=== PATIENT | male | born 1985 | race Caucasian/White ===

== ENCOUNTER 2021-10-31 21:16 | Inpatient (IN) | payer OTHER ==
[2021-10-31] MEDS ORDERED: ONDANSETRON *ODT* 4 MG TABLET SL PRN (21:49)
[2021-10-31] MEDS ORDERED: BENZOCAINE/MENTHOL (CHLORASEPTIC ) LOZENGE MM PRN (21:49)
[2021-10-31] MEDS ORDERED: ACETAMINOPHEN 325 MG TABLET (FP) PO PRN (21:49)
[2021-10-31] MEDS ORDERED: MAGNESIUM CITRATE 300 ML BOTTLE PO PRN (21:49)
[2021-10-31] MEDS ORDERED: NALOXONE HCL (KLOXXADO) 8 MG SPRAY NS PRN (21:49)
[2021-10-31] MEDS ORDERED: LOPERAMIDE HCL 2 MG CAPSULE PO PRN (21:49)
[2021-10-31] MEDS ORDERED: DICYCLOMINE HCL 10 MG CAPSULE PO PRN (21:49)
[2021-10-31] MEDS ORDERED: MAG HYDROX/AL HYDROX/SIMETH 30 ML UNIT-DOSE CUP PO PRN (21:49)
[2021-10-31] MEDS ORDERED: MAGNESIUM HYDROX 2400MG/30ML ORAL SUSPENSION 30 ML CUP PO PRN (21:49)
[2021-10-31] MEDS ORDERED: BISMUTH SUBSALICYLATE 524 MG/30 ML PO PRN (21:49)
[2021-10-31 22:52] VITALS: BMI 24.8
[2021-11-01] MEDS: MELATONIN 5 MG TABLETS PO SCH ×2 (01:08→22:31)
[2021-11-01] MEDS: THIAMINE HCL 100 MG TABLET (FP) PO SCH ×2 (01:08→22:29)
[2021-11-01] MEDS: clonazePAM 0.5 MG ODT TABLETS SL SCH ×2 (01:08→10:37)
[2021-11-01] MEDS: LORazepam 2 MG TABLET PO SCH ×5 (01:09→22:30)
[2021-11-01] MEDS: hydrOXYzine PAMOATE 25 MG CAPSULE (FP) PO SCH ×2 (01:12→07:49)
[2021-11-01] MEDS: ACETAMINOPHEN 325 MG TABLET (FP) PO PRN ×2 (01:14→17:59)
[2021-11-01] MEDS: NICOTINE 21 MG/24 HOURS TOPICAL PATCH TD SCH ×2 (01:21→10:35)
[2021-11-01] MEDS: PRENATAL VITAMINS W/ FOLIC ACID TABLET (FP) PO SCH ×2 (01:21→10:34)
[2021-11-01] MEDS ORDERED: methaDONE HCL 10 MG TABLET PO ONE (09:27)
[2021-11-01] MEDS ORDERED: methaDONE HCL 40 MG DISPERSABLE TABLET ONE (10:13)
[2021-11-01] MEDS ORDERED: methaDONE HCL 10 MG TABLET ONE (10:13)
[2021-11-01] MEDS: NICOTINE 10 MG CARTRIDGE (INHALER) IH PRN ×4 (10:35→22:36)
[2021-11-01] MEDS ORDERED: PNEUMOC 20-VAL CONJ-DIP CRM/PF 0.5 ML SYRINGE IM ONE (12:00)
[2021-11-01 13:49] LABS: HEMATOCRIT 38.6 % (35.4-49); HEMOGLOBIN 12.7 GM/dL (11.7-16.9); MCH 31.3 pg (25.7-33.7); MCHC 32.9 g/dl (32.0-35.9); MEAN CELL VOLUME 95.4 fl (80-96); PLATELET COUNT 172 10^3/uL (134-434); RBC 4.05 M/mm3 (4.00-5.60); RDW 13.4 % (11.9-15.9)
[2021-11-01] MEDS: LORazepam 1 MG TABLET PO PRN ×2 (14:08→20:38)
[2021-11-01 14:27] LABS: ALBUMIN 3.6 g/dl (3.4-5.0)
[2021-11-01 14:30] LABS: CALCIUM 9.3 mg/dL (8.5-10.1)
[2021-11-01 14:31] LABS: BILIRUBIN,TOTAL 0.9 mg/dL (0.2-1)
[2021-11-01 14:32] LABS: TOT PROT 6.6 g/dl (6.4-8.2)
[2021-11-01 14:34] LABS: BLOOD UREA NITROGEN 10.8 mg/dL (7-18); CREATININE 0.7 mg/dL (0.55-1.3)
[2021-11-01 15:32] LABS: HIV INTERPRETATION NEGATIVE (NEGATIVE)
[2021-11-01] MEDS: NICOTINE POLACRILEX 2 MG GUM BUC PRN ×2 (17:18→20:42)
[2021-11-01] MEDS: METHOCARBAMOL 500 MG TABLET PO PRN (17:59)
[2021-11-01] MEDS: IBUPROFEN 400 MG TABLET (FP) PO PRN (20:40)
[2021-11-01] MEDS ORDERED: clonazePAM 0.5 MG ODT TABLETS SL ONE (21:37)
[2021-11-02] MEDS: LORazepam 1 MG TABLET PO PRN ×2 (01:55→07:06)
[2021-11-02] MEDS: IBUPROFEN 400 MG TABLET (FP) PO PRN (01:56)
[2021-11-02] MEDS: NICOTINE POLACRILEX 2 MG GUM BUC PRN ×4 (01:58→09:12)
[2021-11-02] MEDS ORDERED: methaDONE HCL 10 MG TABLET ONE (04:24)
[2021-11-02] MEDS ORDERED: methaDONE HCL 40 MG DISPERSABLE TABLET ONE (04:25)
[2021-11-02] MEDS: LORazepam 1 MG TABLET PO SCH ×2 (05:00→10:05)
[2021-11-02] MEDS: NICOTINE 10 MG CARTRIDGE (INHALER) IH PRN ×5 (05:08→23:07)
[2021-11-02] MEDS: ACETAMINOPHEN 325 MG TABLET (FP) PO PRN ×2 (05:10→13:16)
[2021-11-02] MEDS ORDERED: methaDONE HCL 10 MG TABLET PO SCH (06:00)
[2021-11-02] MEDS: METHOCARBAMOL 500 MG TABLET PO PRN ×2 (10:05→17:51)
[2021-11-02] MEDS: PRENATAL VITAMINS W/ FOLIC ACID TABLET (FP) PO SCH (10:05)
[2021-11-02] MEDS: NICOTINE 21 MG/24 HOURS TOPICAL PATCH TD SCH (10:05)
[2021-11-02] MEDS: NAPROXEN 500 MG TABLET PO PRN ×2 (12:10→22:37)
[2021-11-02] MEDS: clonazePAM 0.5 MG ODT TABLETS SL SCH ×2 (13:17→22:03)
[2021-11-02 14:09] LABS: SARS-CoV-2 NAA Not Detected (Not Detected)
[2021-11-02 14:09] LABS: SARS-CoV-2 NAA Not Detected (Not Detected)
[2021-11-02] MEDS: NICOTINE POLACRILEX 4 MG GUM BUC PRN ×3 (14:19→23:07)
[2021-11-02] MEDS: MELATONIN 5 MG TABLETS PO SCH (22:03)
[2021-11-02] MEDS: THIAMINE HCL 100 MG TABLET (FP) PO SCH (22:03)
[2021-11-02 23:08] VITALS: TEMP 97.1
[2021-11-03] MEDS ORDERED: LORazepam 0.5 MG TABLET PO PRN
[2021-11-03] MEDS: NICOTINE POLACRILEX 4 MG GUM BUC PRN ×3 (01:52→07:34)
[2021-11-03] MEDS: ACETAMINOPHEN 325 MG TABLET (FP) PO PRN (01:57)
[2021-11-03] MEDS ORDERED: methaDONE HCL 10 MG TABLET ONE (03:53)
[2021-11-03] MEDS ORDERED: methaDONE HCL 40 MG DISPERSABLE TABLET ONE (03:54)
[2021-11-03] MEDS ORDERED: LORazepam 0.5 MG TABLET PO SCH (05:00)
[2021-11-03] MEDS: METHOCARBAMOL 500 MG TABLET PO PRN (05:02)
[2021-11-03] MEDS: clonazePAM 0.5 MG ODT TABLETS SL SCH (05:02)
[2021-11-03] MEDS: NAPROXEN 500 MG TABLET PO PRN (05:08)
[2021-11-03 07:08] VITALS: BP 159/98; PULSE 79
[2021-11-03] MEDS: NICOTINE 21 MG/24 HOURS TOPICAL PATCH TD SCH (10:21)
[2021-11-03] MEDS: PRENATAL VITAMINS W/ FOLIC ACID TABLET (FP) PO SCH (10:21)
[2021-11-04] MEDS ORDERED: LORazepam 0.5 MG TABLET PO ONE (05:00)
== END 2021-11-03 09:50 | disposition home or self-care (01) | DRG 773 ==
LOC: YASAS 21:16 → Y3N 23:27
PROVIDERS: ADMIT Allergy & Immunology; ATTEND Allergy & Immunology
PROC: HZ2ZZZZ Detoxification Services for Substance Abuse Treatment (ICD-10-PCS; principal; 2021-10-31)
DX: F10.230 Alcohol dependence with withdrawal, uncomplicated (principal); F11.20 Opioid dependence, uncomplicated; F13.20 Sedative, hypnotic or anxiolytic dependence, uncomplicated; F12.10 Cannabis abuse, uncomplicated; F17.210 Nicotine dependence, cigarettes, uncomplicated; G40.909 Epilepsy, unspecified, not intractable, without status epilepticus; Z28.310 Unvaccinated for COVID-19; Z87.19 Personal history of other diseases of the digestive system; Z88.8 Allergy status to other drugs, medicaments and biological substances
CPT/HCPCS: 36415; 80053; 85027; 86780; 87389; 93005; 93010; C9803-CS; U0003; U0005

== ENCOUNTER 2022-09-10 14:57 | Inpatient (IN) | payer OTHER ==
[2022-09-10 17:02] VITALS: BMI 23.7
[2022-09-10] MEDS ORDERED: BENZOCAINE/MENTHOL (CHLORASEPTIC ) LOZENGE MM PRN (19:08)
[2022-09-10] MEDS ORDERED: ONDANSETRON *ODT* 4 MG TABLET SL PRN (19:08)
[2022-09-10] MEDS ORDERED: ACETAMINOPHEN 325 MG TABLET (FP) PO PRN (19:08)
[2022-09-10] MEDS ORDERED: POLYETHYLENE GLYCOL (HEALTHYLAX) 3350 17 GM PACKET PO PRN (19:08)
[2022-09-10] MEDS ORDERED: P-EPHED 60MG/TRIPROLIDI 2.5MG TABLET PO PRN (19:08)
[2022-09-10] MEDS ORDERED: DICYCLOMINE HCL 10 MG CAPSULE PO PRN (19:08)
[2022-09-10] MEDS ORDERED: MAGNESIUM HYDROX 2400MG/30ML ORAL SUSPENSION 30 ML CUP PO PRN (19:08)
[2022-09-10] MEDS ORDERED: BENZONATATE 200 MG CAPSULE PO PRN (19:08)
[2022-09-10] MEDS ORDERED: guaiFENesin 600 MG TABLET.ER (FP) PO PRN (19:08)
[2022-09-10] MEDS ORDERED: BISMUTH SUBSALICYLATE 524 MG/30 ML PO PRN (19:08)
[2022-09-10] MEDS ORDERED: MAG HYDROX/AL HYDROX/SIMETH 30 ML UNIT-DOSE CUP PO PRN (19:08)
[2022-09-10] MEDS ORDERED: chlordiazePOXIDE HCL 25 MG CAPSULE ONE (19:18)
[2022-09-10] MEDS ORDERED: chlordiazePOXIDE HCL 25 MG CAPSULE PO ONE (19:19)
[2022-09-10] MEDS: amLODIPine BESYLATE 5 MG TABLET (FP) PO SCH (21:31)
[2022-09-10] MEDS ORDERED: amLODIPine BESYLATE 5 MG TABLET (FP) ONE (21:32)
[2022-09-10] MEDS ORDERED: traZODone HCL 50 MG TABLET (FP) PO ONE (22:00)
[2022-09-10] MEDS: IBUPROFEN 600 MG TABLET (FP) PO PRN (22:08)
[2022-09-10] MEDS: levETIRAcetam 500 MG TABLET (FP) PO SCH (22:08)
[2022-09-10] MEDS: THIAMINE HCL 100 MG TABLET (FP) PO SCH (22:08)
[2022-09-10] MEDS: METHOCARBAMOL 500 MG TABLET PO PRN (22:26)
[2022-09-10] MEDS: MELATONIN 5 MG TABLETS PO PRN (22:26)
[2022-09-10] MEDS: chlordiazePOXIDE HCL 25 MG CAPSULE PO SCH (22:28)
[2022-09-11] MEDS: chlordiazePOXIDE HCL 25 MG CAPSULE PO SCH ×4 (05:34→22:35)
[2022-09-11] MEDS: NICOTINE POLACRILEX 2 MG GUM BUC PRN ×4 (05:37→20:43)
[2022-09-11] MEDS ORDERED: methaDONE HCL 10 MG TABLET PO SCH (09:15)
[2022-09-11] MEDS: methaDONE 40 MG, methaDONE 20 MG PO SCH (09:46)
[2022-09-11 10:05] LABS: HEMATOCRIT 36.5 % (35.4-49); HEMOGLOBIN 12.1 GM/dL (11.7-16.9); MCH 31.5 pg (25.7-33.7); MCHC 33.2 g/dl (32.0-35.9); MEAN CELL VOLUME 94.7 fl (80-96); MEAN PLT VOLUME 9.1 fl (7.5-11.1); PLATELET COUNT 174 10^3/uL (134-434); RBC 3.86 M/mm3 (4.00-5.60); RDW 13.9 % (11.9-15.9); WHITE BLOOD COUNT 5.1 K/mm3 (4.0-10.0)
[2022-09-11] MEDS: levETIRAcetam 500 MG TABLET (FP) PO SCH ×2 (10:30→22:35)
[2022-09-11] MEDS: PRENATAL VITAMINS W/ FOLIC ACID TABLET (FP) PO SCH (10:30)
[2022-09-11] MEDS: LISINOPRIL 20 MG TABLET PO SCH (10:31)
[2022-09-11] MEDS: amLODIPine BESYLATE 5 MG TABLET (FP) PO SCH (10:32)
[2022-09-11] MEDS: IBUPROFEN 600 MG TABLET (FP) PO PRN ×2 (10:34→19:23)
[2022-09-11] MEDS: LOPERAMIDE HCL 2 MG CAPSULE PO PRN (10:37)
[2022-09-11] MEDS: METHOCARBAMOL 500 MG TABLET PO PRN (12:24)
[2022-09-11] MEDS: chlordiazePOXIDE HCL 25 MG CAPSULE PO PRN ×2 (12:27→19:23)
[2022-09-11] MEDS: NICOTINE 10 MG CARTRIDGE (INHALER) IH PRN ×2 (12:27→17:26)
[2022-09-11 12:43] LABS: ALBUMIN 3.4 g/dl (3.4-5.0); BLOOD UREA NITROGEN 8.7 mg/dL (7-18); CALCIUM 9.2 mg/dL (8.5-10.1)
[2022-09-11 12:46] LABS: CREATININE 0.8 mg/dL (0.55-1.3)
[2022-09-11 12:48] LABS: BILIRUBIN,TOTAL 1.2 mg/dL (0.2-1)
[2022-09-11 12:49] LABS: TOT PROT 6.4 g/dl (6.4-8.2)
[2022-09-11] MEDS: hydrOXYzine PAMOATE 25 MG CAPSULE (FP) PO PRN (16:01)
[2022-09-11] MEDS: THIAMINE HCL 100 MG TABLET (FP) PO SCH (22:34)
[2022-09-11] MEDS: MELATONIN 5 MG TABLETS PO PRN (22:34)
[2022-09-11] MEDS: traZODone HCL 50 MG TABLET (FP) PO SCH (22:34)
[2022-09-12] MEDS: methaDONE 40 MG, methaDONE 20 MG PO SCH (05:47)
[2022-09-12] MEDS: chlordiazePOXIDE HCL 25 MG CAPSULE PO SCH ×4 (05:50→22:00)
[2022-09-12] MEDS: NICOTINE POLACRILEX 2 MG GUM BUC PRN ×5 (05:51→22:06)
[2022-09-12] MEDS: IBUPROFEN 400 MG TABLET (FP) PO PRN (08:06)
[2022-09-12] MEDS: chlordiazePOXIDE HCL 25 MG CAPSULE PO PRN ×3 (08:07→19:21)
[2022-09-12] MEDS: hydrOXYzine PAMOATE 25 MG CAPSULE (FP) PO PRN (09:05)
[2022-09-12] MEDS: levETIRAcetam 500 MG TABLET (FP) PO SCH ×2 (10:27→22:01)
[2022-09-12] MEDS: PRENATAL VITAMINS W/ FOLIC ACID TABLET (FP) PO SCH (10:27)
[2022-09-12] MEDS: amLODIPine BESYLATE 5 MG TABLET (FP) PO SCH (10:28)
[2022-09-12] MEDS: LISINOPRIL 20 MG TABLET PO SCH (10:28)
[2022-09-12] MEDS: NICOTINE 10 MG CARTRIDGE (INHALER) IH PRN ×3 (10:30→22:06)
[2022-09-12] MEDS: LOPERAMIDE HCL 2 MG CAPSULE PO PRN ×2 (12:15→22:02)
[2022-09-12] MEDS: METHOCARBAMOL 500 MG TABLET PO PRN ×2 (12:16→17:54)
[2022-09-12] MEDS: IBUPROFEN 600 MG TABLET (FP) PO PRN (17:53)
[2022-09-12] MEDS: traZODone HCL 50 MG TABLET (FP) PO SCH (22:00)
[2022-09-12] MEDS: THIAMINE HCL 100 MG TABLET (FP) PO SCH (22:01)
[2022-09-12] MEDS: MELATONIN 5 MG TABLETS PO PRN (22:01)
[2022-09-13] MEDS: methaDONE 40 MG, methaDONE 20 MG PO SCH (05:45)
[2022-09-13] MEDS: chlordiazePOXIDE HCL 10 MG CAPSULE PO SCH ×4 (05:46→22:16)
[2022-09-13] MEDS: NICOTINE POLACRILEX 2 MG GUM BUC PRN ×5 (05:50→22:18)
[2022-09-13] MEDS: IBUPROFEN 400 MG TABLET (FP) PO PRN (05:52)
[2022-09-13] MEDS: METHOCARBAMOL 500 MG TABLET PO PRN ×2 (05:52→20:24)
[2022-09-13] MEDS: chlordiazePOXIDE HCL 10 MG CAPSULE PO PRN ×3 (08:04→19:44)
[2022-09-13] MEDS: NICOTINE 10 MG CARTRIDGE (INHALER) IH PRN ×3 (08:54→19:43)
[2022-09-13] MEDS: PRENATAL VITAMINS W/ FOLIC ACID TABLET (FP) PO SCH (10:17)
[2022-09-13] MEDS: amLODIPine BESYLATE 5 MG TABLET (FP) PO SCH (10:17)
[2022-09-13] MEDS: LISINOPRIL 20 MG TABLET PO SCH (10:17)
[2022-09-13] MEDS: levETIRAcetam 500 MG TABLET (FP) PO SCH ×2 (10:17→22:16)
[2022-09-13] MEDS: LOPERAMIDE HCL 2 MG CAPSULE PO PRN (10:19)
[2022-09-13] MEDS: hydrOXYzine PAMOATE 25 MG CAPSULE (FP) PO PRN (14:43)
[2022-09-13] MEDS: IBUPROFEN 600 MG TABLET (FP) PO PRN (17:39)
[2022-09-13] MEDS: THIAMINE HCL 100 MG TABLET (FP) PO SCH (22:16)
[2022-09-13] MEDS: MELATONIN 5 MG TABLETS PO PRN (22:16)
[2022-09-13] MEDS: traZODone HCL 50 MG TABLET (FP) PO SCH (22:16)
[2022-09-14] MEDS ORDERED: chlordiazePOXIDE HCL 10 MG CAPSULE PO SCH (05:00)
[2022-09-14] MEDS: METHOCARBAMOL 500 MG TABLET PO PRN (05:46)
[2022-09-14] MEDS: IBUPROFEN 600 MG TABLET (FP) PO PRN (05:46)
[2022-09-14] MEDS: methaDONE 40 MG, methaDONE 20 MG PO SCH (05:47)
[2022-09-14] MEDS: NICOTINE 10 MG CARTRIDGE (INHALER) IH PRN (05:54)
[2022-09-14] MEDS: LOPERAMIDE HCL 2 MG CAPSULE PO PRN (05:57)
[2022-09-14 06:44] VITALS: BP 128/86; PULSE 67; RESP 16; TEMP 97.5
[2022-09-14] MEDS: hydrOXYzine PAMOATE 25 MG CAPSULE (FP) PO PRN (07:38)
[2022-09-14] MEDS: NICOTINE POLACRILEX 2 MG GUM BUC PRN (08:44)
[2022-09-15] MEDS ORDERED: chlordiazePOXIDE HCL 10 MG CAPSULE PO ONE (05:00)
== END 2022-09-14 09:26 | disposition home or self-care (01) | DRG 773 ==
LOC: YASAS 14:57 → Y3N 21:17
PROVIDERS: ADMIT Allergy & Immunology; ATTEND Surgery
PROC: HZ2ZZZZ Detoxification Services for Substance Abuse Treatment (ICD-10-PCS; principal; 2022-09-10)
DX: F10.230 Alcohol dependence with withdrawal, uncomplicated (principal); F13.20 Sedative, hypnotic or anxiolytic dependence, uncomplicated; F11.20 Opioid dependence, uncomplicated; F17.210 Nicotine dependence, cigarettes, uncomplicated; F41.1 Generalized anxiety disorder; G40.909 Epilepsy, unspecified, not intractable, without status epilepticus; I10 Essential (primary) hypertension; Z87.19 Personal history of other diseases of the digestive system; Z28.310 Unvaccinated for COVID-19; Z28.9 Immunization not carried out for unspecified reason; Z88.8 Allergy status to other drugs, medicaments and biological substances
CPT/HCPCS: 36415; 80053; 85027; 86780; 87811; C9803-CS; U0003; U0005